=== PATIENT | male | born 1965 | race Caucasian/White ===

== ENCOUNTER 2018-05-20 05:24 | Day surgery (SDC) | payer OTHER ==
[~2018-05-20] VITALS: Ht 175.3 cm; Wt 96.6 kg
--- NOTE | ~2018-05-20 | O ---
[facility] [place] [address] OPERATIVE REPORT Name: JESSICA WILSON Room #: 150-2 [facility]#: [id number] Admission: 05/20/18 ������������������ Attend Phys: Endy Paredes MD Discharge: ������������������ Date of : 65 Report #: [id number] THIS REPORT FOR: //name// CC: Uziel Hicks DO Endy Paredes DATE OF SERVICE: 05/20/[address] Endy Paredes and Dr. Uziel Hicks. PREOPERATIVE DIAGNOSIS: Left inguinal hernia. POSTOPERATIVE DIAGNOSIS: Left inguinal hernia. PROCEDURE: Left inguinal hernia repair with Prolene hernia system mesh. SURGEON: Endy Paredes MD. ANESTHESIA: Local IV sedation. DESCRIPTION OF PROCEDURE: The patient was brought to the operating room and placed on operative table in the supine position. Sequential compression devices were in place for DVT prophylaxis. There was no indication for preoperative antibiotics. The patient underwent IV sedation. Left inguinal area was prepped and draped in a sterile fashion. Skin and subcutaneous tissue were then infiltrated with 0.5% Marcaine and 1% Xylocaine in a 1:1 mixture. A left inguinal skin incision was then performed using #10 scalpel blade. Hemostasis obtained using electrocautery. Dissection was carried down through the subcutaneous tissue to the external oblique fascia, which was then incised with a knife and opened with Metzenbaum scissors. The cord was then dissected free, elevated up and held in place with a [place] drain. Cremasteric muscle fibers were then split in the direction of their fibers using clamp and electrocautery. There was a moderate-sized indirect inguinal hernia defect. This hernia sac was dissected free and reduced back through the internal ring. The floor was inspected and found to be weakened, but intact. An extended Prolene hernia system mesh was then inserted through the floor and the underlay patch was then deployed into the preperitoneal space. The floor was then tightened around the connector and internal ring using running 2-0 Prolene two layer Bassini repair. The overlay patch was then deployed into the inguinal canal and it was secured to the pubic tubercle with the same running 2-0 Prolene suture. It was then secured superiorly and at the connector using simple interrupted 2-0 Vicryl sutures. The mesh was split and wrapped around the cord, secured to the inguinal ligament with simple interrupted 2-0 Vicryl suture. The cord was then returned to the canal intact. The external oblique fascia was then closed using running 2-0 Vicryl suture. Minh's fascia was then [address] [address] OPERATIVE REPORT Name: JESSICA WILSON Room #: 150-2 [facility]#: [id number] Admission: 05/20/18 ������������������ Attend Phys: Endy Paredes MD Discharge: ������������������ Date of : 65 Report #: [id number] reapproximated using 3 simple interrupted 2-0 chromic sutures and the skin then closed with a running 4-0 subcuticular Vicryl stitch. Wound was then dressed with Mastisol, 1/2-inch Steri-Strips cut in half, Telfa, 4 x 4 gauze, sponge and tape. The patient was then taken to the recovery room awake, alert and in good condition. Estimated blood loss was approximately 5-10 mL. The patient tolerated procedure well. All sponge, lap and instrument counts correct x 2. ��������������������������������������������� ���������������������������������������� By: ��������������������������������������������� [id number] Endy Paredes MD /nt
[~2018-05-20 05:24] MED LIST: BYSTOLIC10 MG PO; LIPITOR80 MG PO; LIPOFEN150 MG PO; NORVASC5 MG PO; OLMESARTAN-HCT1 EAC2 PO; TURMERIC500 M2 PO; VASCEPA1 GM PO
[2018-05-20 09:20] LABS: CALCIUM 9.1 mg/dL (8.5-10.1); CREATININE 0.9 mg/dL (0.7-1.3); POTASSIUM 3.9 mmol/L (3.5-5.1)
[2018-05-20 09:39] VITALS: BP 125/71
[2018-05-20] MEDS ORDERED: NORCO 5-325 TA1 EACH PO (12:21)
[2018-05-20 12:34] VITALS: BP 125/71
== END 2018-05-20 13:10 | disposition home or self-care (01) ==
LOC: OR 05:24 → TBA 05:24 → OR 09:04
PROVIDERS: Surgery
DX: K40.90 Unilateral inguinal hernia, without obstruction or gangrene, not specified as recurrent (principal); I10 Essential (primary) hypertension; E78.5 Hyperlipidemia, unspecified; Z88.0 Allergy status to penicillin; Z98.890 Other specified postprocedural states; Z87.891 Personal history of nicotine dependence; Z79.899 Other long term (current) drug therapy
CPT/HCPCS: 50010; 50101; 50386; 50417; 54111; 56524; 56525; 56526; 56528; 62110; 62850; 70005

== ENCOUNTER → 2019-08-18 | Outpatient (CLI) | payer OTHER ==
[~2019-08-18] MED LIST changes: +NORCO 5-325 TA1 EACH PO
== END ==
LOC: CAT 14:28
PROVIDERS: ATTEND Internal Medicine Cardiovascular Disease
DX: Z13.6 Encounter for screening for cardiovascular disorders (principal); I25.10 Atherosclerotic heart disease of native coronary artery without angina pectoris; E78.00 Pure hypercholesterolemia, unspecified